=== PATIENT | female | born 1940 ===

== ENCOUNTER 2017-12-21 12:25 | Emergency (ER) | payer MEDICARE, OTHER ==
[2017-12-21 12:31] VITALS: BMI 22.6
[2017-12-21 12:32] VITALS: RESP 20; O2SAT 98
--- NOTE | 2017-12-21 13:27 | ED PDOC ---
Syncope/Near Syncope/Dizziness <AndrewSa nicku Roland - Last Filed: 12/21/17 14:53> Chief Complaint (Provider): syncope History Per: Patient History/Exam Limitations: no limitations Onset/Duration Of Symptoms: Hrs Current Symptoms Are (Timing): Gone Now Additional Complaint(s): 77 y/o F with H/o HTN, DM type 2 , Dizziness episodes, GERD, Osteoporosis, presents to ED complaining of syncope episode 1 hour ago. States that since yesterday she has nor been feeling well, had 3 non bloody soft stools, and had one episode of middle chest pain, which lasted for like 1 hour, and relief without intervention. Reports the chest pain episode, felt different compared with her reflux episodes. Reports she went today to a Hair Salon, was feeling dizzy, nauseated, diaphoretic, had one NBNB vomit, and passed out. As per patient she was told by her hairdresser she passed out for minutes, and no reported involuntary movements during the event. Denies urinary/bowel incontinence, tongue bite during event. When she regained consciousness she was feeling weak, but oriented x 3. PMD: Dr. York <Brooklyn Howard - Last Filed: 12/21/17 16:47> Time Seen by Provider: 12/21/17 12:39 Chief Complaint (Nursing): Syncope Supervising Attending Note - Supervising Attending Note The Documented history was done by the: Physician Popcorn Candy Maker The documented physical exam was done by the: Physician Popcorn Candy Maker The documented procedures were done by the: Physician Popcorn Candy Maker - Attestation: I have personally seen and examined this patient.: Yes I have fully participated in the care of the patient.: Yes I have reviewed all pertinent clinical information: Yes <[place] Andrew - Last Filed: 12/21/17 14:53> Past Medical History Vital Signs: Last Vital Signs Temp 97.7 F 12/21/17 12:31 Pulse 70 12/21/17 12:31 Resp 20 12/21/17 12:31 BP 113/74 12/21/17 12:31 Pulse Ox 98 12/21/17 14:23 <Trin[place] Andrew - Last Filed: 12/21/17 14:53> Vital Signs: Last Vital Signs Temp 97.7 F 12/21/17 12:31 Pulse 70 12/21/17 12:31 Resp 20 12/21/17 12:31 BP 113/74 12/21/17 12:31 Pulse Ox 98 12/21/17 12:31 - Medical History PMH: Diabetes, HTN - Family History Family History: States: Unknown Family Hx <AnitaBrooklyn - Last Filed: 12/21/17 16:47> - Allergies Allergies/Adverse Reactions: Allergies Allergy/AdvReac Type Severity Reaction Status Date / Time No Known Allergies Allergy Verified 12/21/17 12:38 Review of Systems ROS Statement: Except As Marked, All Systems Reviewed And Found Negative (as per HPI) <AnitaBrooklyn - Last Filed: 12/21/17 16:47> Physical Exam - Reviewed Nursing Documentation Reviewed: Yes Vital Signs Reviewed: Yes - Physical Exam Appears: Positive for: Non-toxic, No Acute Distress Head Exam: Positive for: ATRAUMATIC, NORMOCEPHALIC Skin: Positive for: Normal Color, Warm, Dry. Negative for: Pallor, Rash, Jaundice, Mottled, Cyanosis Eye Exam: Positive for: Normal appearance ENT: Positive for: Normal ENT Inspection Neck: Positive for: Normal, Supple Cardiovascular/Chest: Positive for: Regular Rate, Rhythm. Negative for: Chest Non Tender, Edema, Murmur, Bradycardia, Tachycardia Respiratory: Positive for: Normal Breath Sounds. Negative for: Decreased Breath Sounds, Accessory Muscle Use, Crackles, Rales, Rhonchi, Wheezing, Respiratory Distress Gastrointestinal/Abdominal: Positive for: Bowel Sounds (present and normal), Soft. Negative for: Tenderness, Distended, Guarding, Rebound Back: Positive for: Normal Inspection. Negative for: L CVA Tenderness, R CVA Tenderness Extremity: Positive for: Capillary Refill (<2). Negative for: Pedal Edema, Calf Tenderness Neurologic/Psych: Positive for: Alert, egg buyer II-XII (grossly normal), Oriented, Gait (normal). Negative for: Motor/Sensory Deficits, Aphasia, Facial Droop <AnitaBrooklyn - Last Filed: 12/21/17 16:47> - Laboratory Results Result Diagrams: 12/21/17 13:50 12/21/17 13:50 <Trinidad Andrew - Last Filed: 12/21/17 14:53> - Laboratory Results Result Diagrams: 12/21/17 13:50 12/21/17 13:50 - ECG O2 Sat by Pulse Oximetry: 98 <Brooklyn Howard - Last Filed: 12/21/17 16:47> Medical Decision Making Medical Decision Making: Syncope -has had similar episodes in the past -no neurological defects prior or after event -no h/o seizures, and no reported seizures -awake, alert, and oriented x 3 -check CBC. CMP, troponin I x 1 -IV fluids -Orthostatic BP checked, and negative : Lyin/75, sittin/80, standing : 121/80 -EKG NSR, no ST-T waves changes case discussed with Dr. Andrew Re-evaluation -patient feels better after 1 L of NS, denies any complains at this evaluation. Spoke with Dr. York, Pt's PMD. Dr. York states that patient has had similar syncopal episodes in the past, and recommends follow up with him on Sundaydecember 24. Patient was informed of Dr. York recommendations, and she states she wants to go home, and will f/u with Dr. York on Sunday. Case discussed with Dr. Diehl. Patient is stable and asymptomatic, and will be discharged home with outpatient f/u with PMD in 2-3 days. ER precautions given. <Brooklyn Howard - Last Filed: 12/21/17 16:47> Disposition - Patient ED Disposition Is Patient to be Admitted: No Doctor Will See Patient In The: Office Counseled Patient/Family Regarding: Diagnosis, Need For Followup - Disposition Disposition: Routine/Home Disposition Time: 14:53 - POA Present On Arrival: None <Trinidad Andrew - Last Filed: 12/21/17 14:53> - Patient ED Disposition Is Patient to be Admitted: No Discussed With : Gracy Diehl - Disposition Disposition: Routine/Home <Brooklyn Howard - Last Filed: 12/21/17 16:47> - Clinical Impression Clinical Impression: Syncope - Disposition Referrals: Glenn York MD [Family Provider] - Condition: STABLE Additional Instructions: Lenard a roper medico de lori el December 24 mya recomendado Instructions: Syncope (Fainting) Forms: [facility] (Azerbaijani) Print Language: MALTESE
[2017-12-21] MEDS ORDERED: Sodium Chloride 0.9% 1,000 ML IV SCH (13:30)
[2017-12-21 13:56] LABS: BASO % 0.4 % (0.0-2.0); EOS # 0.4 K/uL (0.0-0.7); EOS % 3.2 % (0.0-4.0); HEMOGLOBIN 12.7 g/dL (12.0-16.0); LYMPH # 2.2 K/uL (1.0-4.3); LYMPH % 18.9 % (20.0-40.0); MEAN CELL VOLUME 88.1 fl (81.0-99.0); MEAN CORPUSCULAR HEMOGLOBIN 29.3 pg (27.0-31.0); MEAN CORPUSCULAR HGB CONC 33.3 g/dL (33.0-37.0); MEAN PLATELET VOLUME 9.7 fl (7.2-11.7); MONO # 1.1 K/uL (0.0-0.8); MONO % 9.9 % (0.0-10.0); NEUT # 7.8 K/uL (1.8-7.0); NEUT % 67.6 % (50.0-75.0); RBC 4.33 Mil/uL (3.80-5.20); RED CELL DISTRIBUTION WIDTH 15.8 % (11.5-14.5); WHITE BLOOD COUNT 11.5 K/uL (4.8-10.8)
[2017-12-21 14:07] LABS: ALB/GLOB RATIO 1.2 (1.0-2.1); ALBUMIN 4.3 g/dL (3.5-5.0); ALT/SGPT 41 U/L (9-52); AST/SGOT 41 U/L (14-36); BLOOD UREA NITROGEN 21 mg/dl (7-17); CALCIUM 9.5 mg/dL (8.4-10.2); GFR AFRICAN-AMERICAN > 60; GFR NON-AFRICAN AMERICAN > 60
[2017-12-21 17:17] VITALS: BP 110/70; PULSE 76; TEMP 98.1
--- NOTE | 2017-12-22 12:58 | CARD ---
APPROVED REPORT EKG Measurement Heart [id number] NE [id number] [id number] <Conclusion> Normal sinus rhythm Normal ECG
== END 2017-12-21 16:45 | disposition home or self-care (01) ==
LOC: H.ER 12:25
DX: R55 Syncope and collapse (principal); E11.9 Type 2 diabetes mellitus without complications; I10 Essential (primary) hypertension
CPT/HCPCS: 80053; 82948; 84484; 85025; 93005; 96360; 99285; J7030

== ENCOUNTER 2018-01-22 20:14 | Emergency (ER) | payer MEDICARE, OTHER ==
[2018-01-22 20:14] VITALS: BMI 22.6
--- NOTE | 2018-01-22 21:01 | ED PDOC ---
HPI: Hypertension/Hypotension Time Seen by Provider: 01/22/18 20:41 Chief Complaint (Nursing): High Blood Pressure History Per: Patient, Ocean Export Coordinator (In Demand: Louise Richardson [id number]) History/Exam Limitations: no limitations Onset/Duration Of Symptoms: Hrs Additional Complaint(s): Patient with history of HTN presenting with elevated BP readings at home, systolic was 155 and her pulse was in the 70s, she believed this to be too high and came to the ER. Denies chest pain, shortness of breath, fevers, cough, headache, vision changes, weakness. PMD: Dr. York Past Medical History Reviewed: Historical Data, Nursing Documentation, Vital Signs Vital Signs: Last Vital Signs Temp 97.7 F 01/22/18 20:20 Pulse 75 01/22/18 20:20 Resp 18 01/22/18 20:20 BP 164/88 H 01/22/18 20:20 Pulse Ox 99 01/22/18 20:20 - Medical History PMH: Diabetes, HTN - Family History Family History: States: Unknown Family Hx - Allergies Allergies/Adverse Reactions: Allergies Allergy/AdvReac Type Severity Reaction Status Date / Time No Known Allergies Allergy Verified 12/21/17 12:38 Physical Exam - Reviewed Nursing Documentation Reviewed: Yes Vital Signs Reviewed: Yes - Physical Exam Appears: Positive for: Well, Non-toxic, No Acute Distress Head Exam: Positive for: ATRAUMATIC, NORMAL INSPECTION, NORMOCEPHALIC Skin: Positive for: Normal Color, Warm, DRY Eye Exam: Positive for: EOMI, Normal appearance, PERRL ENT: Positive for: Normal ENT Inspection Neck: Positive for: Normal, Painless ROM Cardiovascular/Chest: Positive for: Regular Rate, Rhythm Respiratory: Positive for: CNT, Normal Breath Sounds Gastrointestinal/Abdominal: Positive for: Normal Exam, Soft. Negative for: Tenderness Back: Positive for: Normal Inspection Extremity: Positive for: Normal ROM Neurologic/Psych: Positive for: Alert, data management II-XII, Oriented. Negative for: Motor/Sensory Deficits - ECG O2 Sat by Pulse Oximetry: 99 Pulse Ox Interpretation: Normal Medical Decision Making Medical Decision Making: Patient was explained using the seismic interpreter that blood pressure fluctuations are multifactorial and may include stress, diet, and medication compliance. Advised patient to followup with Dr. York, states she will see him tomorrow. Patient well appearing, stable, steady gait. Disposition - Clinical Impression Clinical Impression: Hypertension - Disposition Referrals: Glenn York MD [Family Provider] - Disposition: Routine/Home Disposition Time: 21:30 Condition: STABLE Instructions: High Blood Pressure in Adults Forms: [facility] (Upper Sorbian) Print Language: [email or web address]
[2018-01-22 21:34] VITALS: BP 155/84; PULSE 72; RESP 16; TEMP 98.4
[2018-01-23 04:41] VITALS: O2SAT 99
== END 2018-01-22 21:37 | disposition home or self-care (01) ==
LOC: H.ER 20:14
DX: I10 Essential (primary) hypertension (principal); E11.9 Type 2 diabetes mellitus without complications

== ENCOUNTER 2018-06-13 10:05 | Day surgery (SDC) | payer MEDICARE ==
[2018-06-13] MEDS ORDERED: Lactated Ringer's 500 ML IV ONE (10:29)
[2018-06-13] MEDS ORDERED: Propofol 10 mg/ml Inj (20 ML) ONE (12:01)
[2018-06-13 12:18] VITALS: TEMP 97
[2018-06-13 12:34] VITALS: BP 146/79; PULSE 68; RESP 16; O2SAT 98
== END 2018-06-13 13:16 | disposition home or self-care (01) ==
LOC: H.ENDO 10:05
PROVIDERS: ATTEND Internal Medicine Gastroenterology
DX: K30 Functional dyspepsia (principal); K31.89 Other diseases of stomach and duodenum; R14.0 Abdominal distension (gaseous); R19.7 Diarrhea, unspecified; E11.9 Type 2 diabetes mellitus without complications; I10 Essential (primary) hypertension
CPT/HCPCS: 43239; 82948; 88305; 88342; J2704; J7120

== ENCOUNTER 2018-06-20 09:25 | Day surgery (SDC) | payer MEDICARE ==
[2018-06-20] MEDS ORDERED: Lactated Ringer's 500 ML IV ONE (10:08)
[2018-06-20] MEDS ORDERED: Propofol 10 mg/ml Inj (20 ML) ONE (11:00)
[2018-06-20 11:55] VITALS: BP 127/50; PULSE 83; RESP 13; TEMP 97; O2SAT 99
== END 2018-06-20 13:30 | disposition home or self-care (01) ==
LOC: H.ENDO 09:25
PROVIDERS: ATTEND Internal Medicine Gastroenterology
DX: K59.00 Constipation, unspecified (principal); E11.9 Type 2 diabetes mellitus without complications; E03.9 Hypothyroidism, unspecified; I10 Essential (primary) hypertension; M81.0 Age-related osteoporosis without current pathological fracture; F41.9 Anxiety disorder, unspecified; K62.1 Rectal polyp; K57.30 Diverticulosis of large intestine without perforation or abscess without bleeding
CPT/HCPCS: 45380; 82948; 88305; J2001; J2704; J7120